=== PATIENT | female | born 1995 | race Caucasian/White ===

== ENCOUNTER 2022-05-07 19:02 | Emergency (ER) | payer BC, SELFPAY ==
--- NOTE | ~2022-05-07 | XR_ITS ---
EXAMINATION: XR CHEST CLINICAL INFORMATION: Hypoxia COMPARISON: None TECHNIQUE: 2 views of the chest were obtained. FINDINGS: Lungs appear clear. No airspace consolidation. No pleural effusion or pneumothorax. Heart size within normal limits. Status post median sternotomy. Intact sternal wires. Pulmonic valve replacement. No acute osseous injury. XR/XR chest 2V IMPRESSION: No acute pulmonary process.
[2022-05-07 19:08] VITALS: BP 130/70; BP 130/77; PULSE 120; PULSE 125; RESP 26; TEMP 36.6; O2SAT 100; O2SAT 90; BMI 34.7
[2022-05-07 19:23] VITALS: O2SAT 93
--- NOTE | 2022-05-07 20:34 | ED_ITS ---
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 She was apparently at her friend's house earlier today when she suddenly became unresponsive with snoring respirations. Her friend called 911. Per EMS respiratory rate was 6, she was saturating 80% on room air and pupils were dilated. Patient admits to taking a ?half of a Percocet? from another friend. She states she usually does not do pills or drugs. She does occasionally smoke marijuana. When the patient's mom was in the room patient reported smoking marijuana earlier in the day and thought that maybe something was laced. She denies any suicidal ideation or intentional overdose. complaint: accidental overdose Onset (ago): minute(s) Context: Accidental Overdose: wanted to get high Treatments Prior to Arrival: narcan Related Data Allergies Allergy/AdvReac Type Severity Reaction Status Date / Time bupropion [From Wellbutrin] Allergy Unknown Verified 05/07/22 19:22 Review of Systems Review of Systems: Constitutional: No Fever, No Chills ENT/Mouth: No sore throat, No Rhinorrhea, No Swallowing Difficulty Eyes: No Eye Pain, No Swelling, No Redness Cardiovascular: No Chest Pain, + SOB, No Orthopnea, No Edema Respiratory: No Cough, No Sputum, No Wheezing, No dyspnea Gastrointestinal: No Nausea, No Vomiting, No Diarrhea, No abdominal Pain Genitourinary: No Dysuria, No Urinary Frequency, No Hematuria Musculoskeletal: No joint pain, No Myalgias Skin: No Skin Lesions, No rash Neuro: No Weakness, No Numbness, No Dizziness, + Headache Psych: No Anxiety/Panic, No Depression, No SI Heme/Lymph: No Bruising, No Lymphadenopathy Endocrine: No Polyuria, No Polydipsia PMFSH Social History Social History Advance Directives: No Advance Directives Information Provided: No Physical Exam Vital Signs: Vital Signs: Last Vital Signs Temp 98.2 F 05/07/22 23:56 Pulse 112 H 05/07/22 23:56 Resp 18 05/07/22 23:56 BP 122/71 05/07/22 23:56 Pulse Ox 97 05/07/22 23:56 O2 Del Method 05/07/22 23:56 O2 Flow Rate 2 05/07/22 19:23 BMI result Body Mass Index 34.7 Course Course Course Narrative: 26-year-old female with history of tetralogy of Fallot status post 2 open-heart surgeries presents to the ER for evaluation of an unintentional overdose. She states she took ?half a Percocet? from a friend. She states she was at a friend's house when she suddenly became unresponsive with snoring respirations. EMS was called and patient was found with a RR of 6 saturating 80% on room air. She was given Narcan with adequate response. She ribs to the ER so requiring oxygen. She is awake and alert. Reevaluation(s) Reevaluation #1: Patient weaned off of supplemental oxygen however when she fell asleep she was hypoventilating and desaturating to 84%. Supplemental oxygen replaced. Chest x-ray is clear. Labs ordered. Additional intranasal Narcan has been ordered. Given at 9:30pm. She is ambulatory to the bathroom at this time. Reevaluation #2: U tox is positive for fentanyl and cocaine. When informed of the results she said I knew it. Her friend just from fentanyl OD. Adamantly denies regular drug use. WBC 17.9, likely stress Back on 2L NC . When Reevaluation #3: Off of oxygen at 12:15am. AAO X3. HR 110 likely due to cocaine. resting comfortably, asymptomatic. If resp status stable off of O2 she will be able to be discharged home. She is declining need to any type of detox. Additional Reevaluation(s): 1:19 am - remains stable off of supplemental oxygen. comfortable d/c home. physician observation discontinued at this time. VSS, neuro intact. Medications Administered Discontinued Medications Generic Name Dose Route Start Last Admin Trade Name Freq PRN Reason Stop Dose Admin Naloxone HCl 4 mg 05/07/22 21:30 05/07/22 21:40 Naloxone Hcl Nasal 4 Mg [place] NOSTRILALT 05/07/22 21:31 4 mg ONCE ONE Administration Medical Decision Making Differential Diagnosis Differential Diagnoses: The differential diagnosis associated with the presentation includes Polysubstance overdose, unintentional versus intentional overdose, seizure, respiratory arrest, aspiration, pneumonia, aspiration pneumonitis Admission/Observation Consideration of admission/observation: Escalation of care including admission/o bservation considered Discussed admission given recurrent hypoxia however patient was able to be weaned off of oxygen successfully and maintain safe oxygen saturations of 95% or greater on room air. Lab Data [facility] Lab Attestation statement: I reviewed the patient's lab results. Result Diagrams: 05/07/22 21:39 05/07/22 21:39 Labs: Lab Results 05/07/22 05/07/22 05/07/22 Range/Units 21:39 21:39 21:39 WBC 17.9 H (4.8-10.8) X10*3/uL RBC 4.88 (4.20-5.50) X10*6/uL Hgb 13.5 (12.0-16.0) g/dl Hct 41.4 (37.0-47.0) % MCV 84.8 (80.0-98.0) fL MCH 27.7 (27.0-33.0) pg MCHC 32.6 (31.0-35.0) g/dl RDW 13.5 (11.0-16.0) % Plt Count 240 (160-400) X10*3/uL MPV 8.7 L (9.4-12.3) fL Immature Gran % (Auto) 0.3 (0.0-0.4) % Neut % (Auto) 88.3 H (45-73) % Lymph % (Auto) 5.1 L (20-40) % [place] % (Auto) 5.9 (2-11) % Eos % (Auto) 0.2 (0-4) % Baso % (Auto) 0.2 (0-2) % Lymph # (Auto) 0.9 L (1.2-4.9) X10*3/uL [place] # (Auto) 1.1 (0.1-1.2) X10*3/uL Eos # (Auto) 0.0 (0.0-0.4) X10*3/uL Baso # (Auto) 0.0 (0.0-0.2) X10*3/uL Abs Immat Gran (auto) 0.06 H (0.00-0.03) X10*3/uL Absolute Neuts (auto) 15.8 H (2.0-8.3) x10*3/uL Absolute Nucleated RBC 0.000 (0.0-0.012) X10*3/uL Nucleated RBC % (auto) 0.0 (0.0-0.2) /100WBC Sodium 139 (135-145) mmol/L Potassium 3.9 (3.3-5.1) mmol/L Chloride 102 (96-108) mmol/L Carbon Dioxide 27 (22-29) mmol/L Anion Gap 14 (12-20) BUN 12 (9-16) mg/dL Creatinine 1.08 (0.5-1.4) mg/dL Estim Creat Clear Calc 79.0 Estimated GFR > 60 Random Glucose 174 H (60-115) mg/dL Calcium 9.3 (8.4-10.2) mg/dL Magnesium 2.0 (1.6-2.6) mg/dL Total Bilirubin 0.5 (0.0-1.0) mg/dL Direct Bilirubin 0.2 (0.0-0.5) mg/dL AST 35 H (5-31) U/L ALT 45 H (0-31) U/L Alkaline Phosphatase 59 (39-117) U/L Total Protein 7.1 (6.5-8.0) g/dL Albumin 4.6 (3.5-5.0) g/dL Urine Color Urine Appearance Urine pH (5.0-9.0) Ur Specific [place] (1.005-1.025) Urine Protein (Neg-Trace) mg/dL Urine Glucose (UA) (Negative) mg/dL Urine Ketones (Negative) mg/dL Urine Blood (Negative) Urine Nitrite (Negative) Ur Leukocyte Esterase (Negative) Salicylates < 5.0 L (15-30) mg/dL Urine Opiates Screen (Not Detect) Urine Fentanyl Screen (Not Detect) Acetaminophen < 1 (<30) mcg/mL Ur Barbiturates Screen (Not Detect) Ur Phencyclidine Scrn (Not Detect) Ur Amphetamines Screen (Not Detect) U Benzodiazepines Scrn (Not Detect) Urine Cocaine Screen (Not Detect) U Marijuana (THC) Screen (Not Detect) Ethyl Alcohol < 10 mg/dL 05/07/22 05/07/22 Range/Units 21:39 21:39 WBC (4.8-10.8) X10*3/uL RBC (4.20-5.50) X10*6/uL Hgb (12.0-16.0) g/dl Hct (37.0-47.0) % MCV (80.0-98.0) fL MCH (27.0-33.0) pg MCHC (31.0-35.0) g/dl RDW (11.0-16.0) % Plt Count (160-400) X10*3/uL MPV (9.4-12.3) fL Immature Gran % (Auto) (0.0-0.4) % Neut % (Auto) (45-73) % Lymph % (Auto) (20-40) % [place] % (Auto) (2-11) % Eos % (Auto) (0-4) % Baso % (Auto) (0-2) % Lymph # (Auto) (1.2-4.9) X10*3/uL [place] # (Auto) (0.1-1.2) X10*3/uL Eos # (Auto) (0.0-0.4) X10*3/uL Baso # (Auto) (0.0-0.2) X10*3/uL Abs Immat Gran (auto) (0.00-0.03) X10*3/uL Absolute Neuts (auto) (2.0-8.3) x10*3/uL Absolute Nucleated RBC (0.0-0.012) X10*3/uL Nucleated RBC % (auto) (0.0-0.2) /100WBC Sodium (135-145) mmol/L Potassium (3.3-5.1) mmol/L Chloride (96-108) mmol/L Carbon Dioxide (22-29) mmol/L Anion Gap (12-20) BUN (9-16) mg/dL Creatinine (0.5-1.4) mg/dL Estim Creat Clear Calc Estimated GFR Random Glucose (60-115) mg/dL Calcium (8.4-10.2) mg/dL Magnesium (1.6-2.6) mg/dL Total Bilirubin (0.0-1.0) mg/dL Direct Bilirubin (0.0-0.5) mg/dL AST (5-31) U/L ALT (0-31) U/L Alkaline Phosphatase (39-117) U/L Total Protein (6.5-8.0) g/dL Albumin (3.5-5.0) g/dL Urine Color Yellow Urine Appearance Clear Urine pH 6.5 (5.0-9.0) Ur Specific [place] 1.015 (1.005-1.025) Urine Protein Negative (Neg-Trace) mg/dL Urine Glucose (UA) Negative (Negative) mg/dL Urine Ketones Negative (Negative) mg/dL Urine Blood Negative (Negative) Urine Nitrite Negative (Negative) Ur Leukocyte Esterase Negative (Negative) Salicylates (15-30) mg/dL Urine Opiates Screen Not Detected (Not Detect) Urine Fentanyl Screen POSITIVE H (Not Detect) Acetaminophen (<30) mcg/mL Ur Barbiturates Screen Not Detected (Not Detect) Ur Phencyclidine Scrn Not Detected (Not Detect) Ur Amphetamines Screen Not Detected (Not Detect) U Benzodiazepines Scrn Not Detected (Not Detect) Urine Cocaine Screen POSITIVE H (Not Detect) U Marijuana (THC) Screen Not Detected (Not Detect) Ethyl Alcohol mg/dL Independent Interpretation I performed an independent interpretation of an: EKG Interpretation: Sinus tachycardia with ventricular rate 119 beats per minute, wide QRS complex w ith occasional PVCs, QRS 132 Independent Historian Clinical information obtained from an independent historian. History obtained from or confirmed by: EMS Discharge Plan Discharge Clinical Impression: Drug overdose Patient Disposition: Home, Self-Care Instructions: Adult Overdose (ED) Additional Instructions: You tested POSITIVE for FENTANYL and COCAINE You required multiple doses of the medication Narcan to reverse the Fentanyl and help your breathing DO NOT USE ANY ILLICIT DRUGS Referrals: Senait Velasco MD [Primary Care Provider] - Stand Alone Forms: Work/School Release Interventions: [place]-Suicide Risk Severity Scale Last Done: 05/07/22 19:23
--- NOTE | 2022-05-07 21:34 | ECG_ITS ---
Test Reason : OVERDOSE Blood Pressure : / mmHG Vent. Rate : 119 BPM Atrial Rate : 000 BPM P-R Int : 000 ms QRS Dur : 132 ms QT Int : 444 ms P-R-T Axes : 000 054 041 degrees QTc Int : 624 ms Normal sinus rhythm with occasional Premature ventricular complexes Right bundle branch block Possible Inferior infarct , age undetermined Cannot rule out Anterior infarct , age undetermined Abnormal ECG No previous ECGs available Referred By: Patricia Lorenzo Electronically Signed By:JHON GAVIRIA MD
[2022-05-07] MEDS: Naloxone HCl Nasal 4 MG SPRAY NOSTRILALT (21:40)
--- NOTE | 2022-05-07 21:41 | PC.NURSE ---
Pt's is a/o x 4, pt is on o2 3L d/t pt o2 was on 80s. Pt is on the monitor tech and it shows sinus Tachy with a frequent PVC. Pt labs were collected. pt is am=ble to ambulate independently, tech will be observing her.
[2022-05-07 21:45] LABS: Basophils Percent Auto 0.2 % (0-2); Eosinophils Percent Auto 0.2 % (0-4); Hematocrit 41.4 % (37.0-47.0); Hemoglobin 13.5 g/dl (12.0-16.0); Imm Gran Abs Auto 0.06 X10*3/uL (0.00-0.03); Imm Gran Pct Auto 0.3 % (0.0-0.4); Lymphocytes Absolute Auto 0.9 X10*3/uL (1.2-4.9); Lymphocytes Percent Auto 5.1 % (20-40); MANUAL DIFF FLAG NO; Mean Corpuscular HGB Conc 32.6 g/dl (31.0-35.0); Mean Corpuscular Hemoglobin 27.7 pg (27.0-33.0); Mean Corpuscular Volume 84.8 fL (80.0-98.0); Mean Platelet Volume 8.7 fL (9.4-12.3); Monocytes Absolute Auto 1.1 X10*3/uL (0.1-1.2); Monocytes Percent Auto 5.9 % (2-11); Neutrophils Absolute Auto 15.8 x10*3/uL (2.0-8.3); Neutrophils Percent Auto 88.3 % (45-73); Platelet Count 240 X10*3/uL (160-400); Red Blood Count 4.88 X10*6/uL (4.20-5.50); Red Cell Distribution Width 13.5 % (11.0-16.0); White Blood Count 17.9 X10*3/uL (4.8-10.8)
[2022-05-07 22:00] LABS: Acetaminophen LAB < 1 mcg/mL (<30); Appearance Urine Clear; Color Urine Yellow; Glucose Urine UA Negative (Negative); Leukocyte Esterase Urine Negative (Negative); Nitrite Urine Negative (Negative); PH 6.5 (5.0-9.0); Salicylate < 5.0 mg/dL (15-30); Specific Gravity - Urine 1.015 (1.005-1.025); Urine Blood Negative (Negative); Urine Ketones Negative (Negative); Urine Protein Negative (Neg-Trace)
[2022-05-07 22:01] LABS: Alanine Aminotransferase 45 U/L (0-31); Albumin Level 4.6 g/dL (3.5-5.0); Alkaline Phosphatase 59 U/L (39-117); Anion Gap 14 (12-20); Aspartate Amino Transferase 35 U/L (5-31); Bilirubin Direct 0.2 mg/dL (0.0-0.5); Bilirubin Total 0.5 mg/dL (0.0-1.0); Blood Urea Nitrogen 12 mg/dL (9-16); Calcium 9.3 mg/dL (8.4-10.2); Carbon Dioxide 27 mmol/L (22-29); Chloride 102 mmol/L (96-108); Estimated Glomerular Filt Rate > 60; Ethanol < 10 mg/dL; Glucose Random 174 mg/dL (60-115); Potassium 3.9 mmol/L (3.3-5.1); Sodium 139 mmol/L (135-145); Total Protein 7.1 g/dL (6.5-8.0)
[2022-05-07 22:09] LABS: Fentanyl, urine POSITIVE (Not Detect)
[2022-05-07 22:11] LABS: Amphetamine Screen Urine Not Detected (Not Detect); Barbiturates, Urine Not Detected (Not Detect); Benzodiazepines Screen Urine Not Detected (Not Detect); Cannabinoid Screen Urine Not Detected (Not Detect); Opiate Screen Urine Not Detected (Not Detect); Phencyclidine Screen Urine Not Detected (Not Detect)
[2022-05-07 22:54] LABS: Cocaine Screen Urine POSITIVE (Not Detect)
[2022-05-07 23:56] VITALS: BP 122/71; PULSE 112; RESP 18; TEMP 36.8; O2SAT 97
== END 2022-05-08 01:57 | disposition home or self-care (01) ==
PROVIDERS: Physician Assistant; Emergency Provider Internal Medicine; PCP Internal Medicine
DX: R09.02 Hypoxemia (principal); T40.411A Poisoning by fentanyl or fentanyl analogs, accidental (unintentional), initial encounter; T40.5X1A Poisoning by cocaine, accidental (unintentional), initial encounter; R40.4 Transient alteration of awareness; Y92.019 Unspecified place in single-family (private) house as the place of occurrence of the external cause
CPT/HCPCS: 36415; 71046; 80048; 80076; 80143; 80179; 80307; 81003; 82077; 83735; 85025; 93005; 99284